=== PATIENT | female | born 1930 | race Caucasian/White ===

== ENCOUNTER 2019-05-16 12:49 | Outpatient (CLI) | payer MEDICARE | END 2019-05-16 23:59 | disposition home or self-care (01) | LOC: CFH 12:49 | PROVIDERS: ATTEND Internal Medicine Cardiovascular Disease | DX: I08.3 Combined rheumatic disorders of mitral, aortic and tricuspid valves (principal); I11.0 Hypertensive heart disease with heart failure; I50.42 Chronic combined systolic (congestive) and diastolic (congestive) heart failure | CPT/HCPCS: 0399T; 93306 ==